=== PATIENT | female | born 1975 | race Caucasian/White ===

== ENCOUNTER 2018-01-04 10:49 | Emergency (ER) | payer MEDICAID ==
[~2018-01-04] VITALS: Ht 167.6 cm; Wt 99.3 kg
[~2018-01-04 10:49] MED LIST: CYCL-36 PO; LORTA5 PO; VIST25CA PO; Z.0.NO CURRENT MEDS
[2018-01-04 11:11] VITALS: BP 128/61; PULSE 72; RESP 16; TEMP 98.1; O2SAT 99
--- NOTE | 2018-01-04 12:48 | PD ---
HPI Chief Complaint: Musculoskeletal Complaint Time Seen by Provider: 12:01 Travel History International Travel<30 days: No Contact w/Intl Traveler<30days: No Traveled to known affect area: No History of Present Illness HPI This is a 42-year-old female here with right knee pain worsening over the last week. She denies injury or trauma. She has pain with weightbearing and range of motion. Her evaluation today after she had difficulty walking due to the pain. Symptom severity is moderate. Slightly relieved with rest. PFSH Past Medical History Medical History: Denies Significant Hx Diminished Hearing: No Tetanus Vaccination: < 5 Years Influenza Vaccination: No ?: Not LMP: 12/31/17 Past Surgical History Surgical History: No Previous Surgery Social History Alcohol Use: No Tobacco Use: Yes (10/23 PPD) Substance Use: No Allergies-Medications (Allergen,Severity, Reaction): Coded Allergies: No Known Allergies (Verified Adverse Reaction, Unknown, 01/04/18) Reported Meds & Prescriptions Reported Meds & Active Scripts Active Review of Systems Except as stated in HPI: all other systems reviewed are Neg Physical Exam Narrative GENERAL: Alert well-appearing 42-year-old female. SKIN: Warm and dry. HEAD: Normocephalic. EYES: No injection or drainage. NECK: Supple, CARDIOVASCULAR: Regular rate and rhythm without murmurs, gallops, or rubs. RESPIRATORY: Breath sounds equal bilaterally. No accessory muscle use. GASTROINTESTINAL: Abdomen soft, non-tender, nondistended. MUSCULOSKELETAL: No cyanosis, or edema. Right lower extremity: +TTP anterior aspect of the knee. No obvious deformity. The joint is stable. No posterior knee pain. She has pain with full flexion. 2+ distal pulses. Normal sensation. Brisk cap refill. Data Data Last Documented VS Vital Signs Date Time Temp Pulse Resp B/P (MAP) Pulse Ox O2 Delivery O2 Flow Rate FiO2 01/04/18 11:11 98.1 72 16 128/61 (83) 99 Orders Orders Knee, Complete (4vws) (01/04/18 ) [facility] Medical Decision Making Medical Screen Exam Complete: Yes Emergency Medical Condition: Yes Differential Diagnosis Knee sprain/strain, arthralgia, fracture Narrative Course 42-year-old female with right knee pain. The extremity is neurovascularly intact. X-ray negative for fracture Diagnosis Primary Impression: Knee pain Qualified Codes: M25.569 - Pain in unspecified knee Referrals: Primary Care Physician Additional Instructions: Medication as needed for pain. Ice and Elevate the extremity. Follow-up with her primary doctor. Scripts Ibuprofen (Ibuprofen) 800 Mg Tab 800 MG PO Q6HR Y for PAIN, #40 TAB 0 Refills Prov: Ally Lazar 01/04/18 Tramadol (Ultram) 50 Mg Tab 50 MG PO Q6H Y for PAIN, #10 TAB 0 Refills Prov: Ally Lazar 01/04/18 Disposition: 01 DISCHARGE HOME Condition: Stable Ally Lazar Jan 04, 2018 12:48
--- NOTE | 2018-01-04 13:18 | RADRPT ---
EXAM DATE/TIME: 01/04/2018 12:50 [place] COMPARISON: No previous studies available for comparison. INDICATIONS : Onset of right knee pain with no known injury, pain has been increasing in severity MEDICAL HISTORY : None. SURGICAL HISTORY : None. ENCOUNTER: Initial ACUITY: 1 week PAIN SCORE: 10/10 LOCATION: Right knee FINDINGS: Four view examination of the right knee demonstrates no evidence of fracture or dislocation. Bony mi neralization is normal. The articular surfaces are intact. The suprapatellar soft tissues have a no rmal configuration. CONCLUSION: No acute disease. Violeta Elizondo MD on January 04, 2018 at 13:15 Board Certified Radiologist. This report was verified electronically.
[2018-01-04] MEDS ORDERED: TRAM50 PO (13:24)
[2018-01-04] MEDS ORDERED: IBUP1TAB7 PO (13:24)
[2018-01-04] MEDS ORDERED: KETOROLAC TROMETHAMINE 60 MG/2 ML (IM) VIAL IM ONE (13:30)
== END 2018-01-04 13:45 | disposition home or self-care (01) ==
LOC: PHEFT 10:49
DX: M25.561 Pain in right knee (principal); R26.2 Difficulty in walking, not elsewhere classified; F17.210 Nicotine dependence, cigarettes, uncomplicated
CPT/HCPCS: 73564; 96372; 99284; J1885